=== PATIENT | male | born 1995 | race Two or more races ===

== ENCOUNTER 2017-04-03 16:41 | Emergency (ER) | payer OTHER ==
[~2017-04-03] VITALS: Ht 177.8 cm; Wt 117.9 kg
[2017-04-03 16:47] VITALS: BP 129/70
[2017-04-03] MEDS ORDERED: Methocarbamol 750mg tab ORAL ONE (17:30)
[2017-04-03] MEDS ORDERED: IBUPROFEN600 MG ORAL (18:25)
[2017-04-03] MEDS ORDERED: ROBAXIN-750750 MG PO (18:25)
[2017-04-03 19:07] VITALS: BP 119/76
--- NOTE | 2017-04-04 12:09 | Emergency Room Report ---
History of Present Illness General Chief Complaint: Head Injury Source: Patient Present Illness HPI The patient is a 21-year-old male presenting for headache after a box fell on him at work. The patient states that a box full of plastic bags onto the left side of his head and is now complaining of a 5/10 dull ache to the area. He denies falling or loss of consciousness. Pain does not radiate. Pain worse with touch. He denies any other symptoms including dizziness, blurred vision, N , V, F, chills Allergies: Coded Allergies: No Known Allergies (Unverified , 04/03/17) Patient History Past Medical History: see triage record Pertinent Family History: none Reviewed Nursing Documentation: PMH: Agreed, PSxH: Agreed Nursing Documentation-PMH Past Medical History: No Stated History Review of Systems All Other Systems: negative except mentioned in HPI Physical Exam Vital Signs Date Time Temp Pulse Resp B/P Pulse Ox O2 Delivery O2 Flow Rate FiO2 04/03/17 16:47 97.9 18 129/70 96 Room Air 04/03/17 16:47 66 Sp02 EP Interpretation: reviewed, normal General Appearance: no apparent distress, alert, GCS 15, non-toxic Head: normocephalic, atraumatic, other - TTP over the L frontal scalp Eyes: bilateral eye PERRL, bilateral eye normal inspection ENT: hearing grossly normal, normal pharynx, no angioedema, normal voice Neck: supple, no bony tend, limited range of motion, tender lateral - L paraspinous muscles Musculoskeletal: back normal, gait/station normal, normal range of motion, non- tender Neurologic: alert, oriented x3, responsive, motor strength/tone normal, sensory intact, speech normal Psychiatric: judgement/insight normal, memory normal, mood/affect normal, no suicidal/homicidal ideation Skin: normal color, no rash, warm/dry, well hydrated Lymphatic: no adenopathy Medical Decision Making PA Attestation Dr. Sainz is my supervising physician. Patient management was discussed with my supervising physician Diagnostic Impression: Primary Impression: Neck muscle strain Qualified Codes: S16.1XXA - Strain of muscle, fascia and tendon at neck level , initial encounter Additional Impression: Scalp contusion ER Course The patient is a 21-year-old male presenting for headache after a box fell on him DDx: concussion, fracture, muscle strain, contusion PE: vitals WNL. TTP over the L frontal scalp. No edema. No ecchymosis PERRL Neck: soft and supple. TTP over the L lateral paraspinous muscles No midline tenderness He is given Motrin and Robaxin in the ER and is feeling better. He'll be discharged home with the same medications. He is given limited time off of work and will followup with workers compensation. ER precautions are given Last Vital Signs Date Time Temp Pulse Resp B/P Pulse Ox O2 Delivery O2 Flow Rate FiO2 04/03/17 19:07 66 18 119/76 99 Room Air 04/03/17 16:47 97.9 Status: improved Disposition: HOME, SELF-CARE Condition: Improved Scripts Methocarbamol* (ROBAXIN-750*) 750 Mg Tablet 750 MG PO TID, #21 TAB 0 Refills Prov: TYESHA JASSO.ALavern 04/03/17 Ibuprofen* (MOTRIN*) 600 Mg Tablet 600 MG ORAL Q6H Y for For Pain, #30 TAB Prov: TYESHA JASSO 04/03/17 Patient Instructions: Facial or Scalp Contusion, Muscle Strain Additional Instructions: I discussed my findings with the patient. All questions and concerns have been answered. Treatment and medication compliance have been addressed. I advised the patient that they need to follow up with PMD in 3-5 days. Return to ED if symptoms worsen, new symptoms arise, or if needed for any reason. Patient verbalized understanding of discharge instructions. Follow up with worker's compensation. TYESHA JASSO April 04, 2017 12:09
== END 2017-04-03 19:09 | disposition home or self-care (01) ==
LOC: EMR 18:00
DX: S16.1XXA Strain of muscle, fascia and tendon at neck level, initial encounter (principal); S00.03XA Contusion of scalp, initial encounter; W20.8XXA Other cause of strike by thrown, projected or falling object, initial encounter; Y92.89 Other specified places as the place of occurrence of the external cause; Y99.0 Civilian activity done for income or pay
CPT/HCPCS: 99284